=== PATIENT | female | born 1955 | race Caucasian/White ===

== ENCOUNTER 2022-12-18 05:30 | Outpatient (CLI) | payer MEDICARE, OTHER ==
[~2022-12-18] VITALS: Ht 157.5 cm; Wt 51.7 kg
== END 2022-12-19 13:06 | disposition home or self-care (01) ==
LOC: PREOP 05:30
PROVIDERS: ATTEND Podiatrist Foot & Ankle Surgery
DX: Z01.818 Encounter for other preprocedural examination (principal)

== ENCOUNTER 2022-12-25 06:02 | Day surgery (SDC) | payer MEDICARE, OTHER ==
[2022-12-25] VITALS (11 sets, daily range): BP systolic 145–188; BP diastolic 71–95
[~2022-12-25] VITALS: Ht 157.5 cm; Wt 51.7 kg
[2022-12-25] MEDS ORDERED: ceFAZolin INJECTION 1,000 MG in NS (IVPB) 50 ML IV ONE (06:15)
[2022-12-25] MEDS: LACTATED RINGERS 1,000 ML IV PRN ×2 (06:33→09:15)
[2022-12-25] MEDS ORDERED: BUPIVACAINE 0.5% 30 ML (SENSORCAINE) VIAL ONE (06:55)
[2022-12-25] MEDS ORDERED: LIDOCAINE 1% INJ 20 ML VIAL ONE (06:55)
[2022-12-25] MEDS ORDERED: LIDOCAINE PF 2% 5 ML (XYLOCAINE) VIAL ONE (07:01)
[2022-12-25] MEDS ORDERED: proPOfol 200 MG/20 ML (DIPRIVAN) VIAL IV ONE (07:01)
[2022-12-25] MEDS ORDERED: fentaNYL INJ 100 MCG/2 ML AMP ONE (07:01)
[2022-12-25] MEDS ORDERED: MIDAZOLAM 2 MG/2 ML (VERSED) VIAL ONE (07:01)
[2022-12-25] MEDS ORDERED: ONDANSETRON 4 MG/2 ML (SDV) Z0FRAN ONE (07:01)
--- NOTE | 2022-12-25 07:39 | Progress Note-Pre Operative ---
Pre-Operative Progress Note Date of Available H&P: Dec 25, 2022 Date H&P Reviewed: Dec 25, 2022 Time H&P Reviewed: 07:39 Pre-Operative Diagnosis: Hallux Valgus, 2n Huberertoe, right BEATRIZ RAMACHANDRAN DPM Dec 25, 2022 07:39
[2022-12-25] MEDS ORDERED: SEVOFLURANE (ULTANE) 15 ML INHAL SOLN ONE (10:18)
--- NOTE | 2022-12-25 10:27 | Progress Note-Post Operative ---
Post-Operative Progess Note Surgeon (s)/Training And Development Director (s) Surgeon BEATRIZ RAMACHANDRAN DPM Training And Development Director: none Pre-Operative Diagnosis Hallux Valgus, 2n Hammertoe, right Post-Operative Diagnosis Same Procedure & Operative Findings Date of Procedure 12/25/22 Procedure Performed/Findings Lapidus-Rudy Bunionectomy, 2nd metatarsal osteotomy, reduction of 2nd hammertoe, right foot. Anesthesia Type General Estimated Blood Loss Estimated blood loss (mL): Minimal Specimens/Packing Specimens Removed none BEATRIZ RAMACHANDRAN DPM Dec 25, 2022 10:27
[2022-12-25] MEDS ORDERED: CEPH500C PO (10:30)
[2022-12-25] MEDS ORDERED: HYDROcodone/APAP 5 MG/325 MG (LORTAB) TAB PO PRN (10:30)
[2022-12-25] MEDS ORDERED: ACHD5005 PO (10:30)
[2022-12-25] MEDS ORDERED: LACTATED RINGERS 1,000 ML IV SCH (10:30)
[2022-12-25] MEDS ORDERED: ONDANSETRON 4 MG/2 ML (SDV) Z0FRAN IVP PRN (10:45)
[2022-12-25] MEDS ORDERED: morphine INJ 10 MG/ML 1ML (SYR OR VIAL) IVP ONE (10:45)
--- NOTE | 2022-12-25 10:56 | Diagnostic Imaging Report ---
INDICATION: Right foot pain. FINDINGS: There are postop changes from pinning of the 2nd digit. The patient has osteotomy of the base of the 1st metatarsal with fusion of the 1st tarsometatarsal joint. There are tendon anchors at the 2nd metatarsal and base of the proximal phalanx of the big toe. IMPRESSION: Post surgical changes of the right foot. The bones and hardware appear to be in good position. Dictated by: Dictated on workstation # [id number]
--- NOTE | 2022-12-25 13:42 | Physical Therapy Ortho Eval ---
PT Orthopedic Evaluation Type of Surgery Prior Level of Function Locomotion (Upon Admit): Independent Established Durable Medical Eq: Crutches Subjective Subjective Patient lying supine in bed upon PT arrival, agreeable to treatment. Reports no pain at the moment, but states "Its just a bad ache." Steps Into Home: 0 Motor Control Motor Control: Motor Control WNL ROM ROM: WFL, except focal deficit Strength Strength: Gen Weak,No Focal Deficit Transfer SCALE: Activities may be completed with or without assistive devices. 0-Kxruolwzyj-uixrdmw completes the activity by him/herself with no assistance from a helper. 5-Set-up or Clean-up Assistance-helper sets up or cleans up; patient completes activity. [place] assists only prior to or following the activity. 4-Supervision or Touching Assistance-helper provides verbal cues and/or touching/steadying and/or contact guard assistance as patient completes activity. Assistance may be provided throughout the activity or intermittently. 3-Partial/Moderate Assistance-helper does LESS THAN HALF the effort. [place] lifts, holds or supports trunk or limbs, but provides less than half the effort. 2-Substantial/Maximal Assistance-helper does MORE THAN HALF the effort. [place] lifts or holds trunk or limbs and provides more than half the effort. 9-Pstpxhwgi-ibhuzj does ALL the effort. Patient does none of the effort to complete the activity. Or, the assistance of 2 or more helpers is required for the patient to complete the activity. If activity was not attempted, code reason: 7-Patient Refused. 9-Not Applicable-not attempted and the patient did not perform the activity before the current illness, exacerbation or injury. 10-Not Attempted due to Environmental Limitations-(lack of equipment, weather restraints, etc.). 88-Not Attempted due to Medical Conditions or Safety Concerns. Transfers (B, C, W/C) (QC): 4 Gait Gait Assistive Device: Crutches Right Lower Extremity: Right Weight Bearing Status RLE: Non Weight Bearing Left Lower Extremity: Left Weight Bearing Status LLE: Full Weight Bearing Gait (QC): 3 Distance: 80 Summary/Comments Patient moderately unsteady during gait with crutches. Requires mod A to avoid falling on three occasions. Patient reports she feels dizzy and "just off", most likely to anaesthesia. Nursing notified and advised to keep patient for at least another hour and let her eat lunch. Stairs #of Steps: 0 Treatment Rendered Treatment: Gait Train Assessment/Goals Goal Time Frame: 1 Visit Safe Ambulation: No Patient does not demonstrate safe ambulation at this time, however this is due to just coming back from surgery. Nursing notified. Plan Treatment Plan: Discharge Time Time In: 1145 Time Out: 1157 Total Billed Treatment Time: 12 Billed Treatment Time Visit, RIGOBERTO SHAIKH PT Dec 25, 2022 13:42
--- NOTE | 2022-12-25 14:11 | Anesthesia-General Post-Op ---
General Patient Condition Mental Status/LOC: Same as Preop Cardiovascular: Satisfactory Nausea/Vomiting: Absent Respiratory: Satisfactory Pain: Controlled Complications: Absent Post Op Complications Complications None Follow Up Care/Instructions Patient Instructions None needed. Anesthesia/Patient Condition Patient Condition Patient is doing well, no complaints, stable vital signs, no apparent adverse anesthesia problems. No complications reported per nursing. DAVID SRIVASTAVA CRNA Dec 25, 2022 14:11
--- NOTE | 2022-12-25 16:28 | OPERATIVE REPORT ---
DATE OF SERVICE: 12/25/2022 SURGEON: Mellissa Rivera DPM. PREOPERATIVE DIAGNOSES: 1. Hallux abductovalgus metatarsal primus varus, right foot. 2. Hypertrophic second metatarsal, right foot. 3. Hammer digit syndrome, right second toe. POSTOPERATIVE DIAGNOSES: 1. Hallux abductovalgus metatarsal primus varus, right foot. 2. Hypertrophic second metatarsal, right foot. 3. Hammer digit syndrome, right second toe. PROCEDURES PERFORMED: 1. Modified Lapidus Rudy bunionectomy, right foot. 2. Second metatarsal osteotomy with screw fixation. 3. Reduction of hammertoe, right second digit. WOUND CLASS: Clean. ANESTHESIA: General. HEMOSTASIS: Pneumatic thigh tourniquet at 250 mmHg. INDICATIONS: This 67-year-old female presents complaining of a painful right foot. Conservative therapy is met with unsatisfactory results and the patient is agreeable to surgical intervention after risks and complications were discussed at length. No guarantees were extended to the patient and she is willing to proceed. DESCRIPTION OF PROCEDURE: The patient was brought back to the operating table and placed in secure supine position. Appropriate timeout was performed. General anesthetic was then induced. A pneumatic thigh tourniquet was placed on the right lower extremity over several layers of padding. Right foot was then prepped and draped in normal sterile manner. The right foot was then elevated, allowing to exsanguinate after which the tourniquet was inflated to 250 mmHg. Attention was then directed to the dorsal aspect of the right first metatarsal cuneiform joint where a 4 cm longitudinal linear incision was created. The incision was deepened in same plane with great care to identify and retract all vital neurovascular structures. Only necessary blood vessels were cauterized as encountered. The incision was deepened down just medial to the extensor hallucis longus down to capsule tissue. A longitudinal capsulotomy was performed and the capsular tissue reflected medially and laterally. Next, utilizing the [place] 28 Lapidus system, a cut guide of 16 degrees was utilized utilizing standard technique. The base of the first metatarsal as well as the distal articular cartilage of the medial cuneiform were resected. Once these wedge bones were removed, good reduction of the metatarsal primus varus was noted. There was also rotation provided with the first metatarsal to bring sesamoids down underneath the head of the first metatarsal. This was confirmed by intraoperative C-arm. Temporary K-wire fixation was driven from plantar aspect of the first metatarsal base up into the medial cuneiform. Next, utilizing a 4-hole standard compression plate for Lapidus, it was applied to the first metatarsal cuneiform joint. The 2 proximal holes of the plate were filled with 3.5 locking screws of 14 and 12 mm of length. Next, the compression screw was driven from dorsal distal to plantar proximal across the arthrodesis site, which was a 4.0 headed screw of 32 mm of length. Excellent compression and fixation was appreciated this time. The distal 3 holes of the Lapidus plate were filled with 3.5, 12 and 18 mm length locking screws and nonlocking screw of 14 mm was also applied. Excellent bony apposition and compression was appreciated at this time. The temporary K-wire fixation was withdrawn from the foot. Attention was then directed to the dorsal aspect of the right first metatarsophalangeal joint where a 4 cm longitudinal linear incision was created. The incision was deepened in the same plane with great care to identify and retract all vital neurovascular structures. It was deepened down to the capsule where a longitudinal capsulotomy was performed. The medial eminence to the first metatarsal was resected utilizing a power sagittal saw. Next, a lateral release was performed to the first metatarsophalangeal joint where the lateral capsulorrhaphy was performed as well as release of the conjoined tendon of the adductor hallucis. This reduced the hallux valgus deformity, but not as much as we wanted. It was then decided that an Rudy type procedure, which should be performed. Subperiosteal dissection was carried out to the diaphysis of the proximal phalanx of the hallux. Utilizing a sagittal saw, a wedge of bone was resected with the base, medial and the lateral cortices held intact. Two transport pilot holes were created at the dorsal medial aspect of the osteotomy after which a 28-gauge monofilament wire was passed through these transport pilot holes securing the osteotomy in a closed position. Excellent bony apposition and fixation was appreciated at this time. The wounds were flushed with copious amounts of normal saline. Closure was performed in layers. Deep closure was performed to the two incisions with 3-0 Vicryl, superficial with 4-0 Vicryl and skin closed with 4-0 Prolene in a horizontal mattress type stitch. Attention was then directed to the dorsal aspect of the right second ray where an incision was created from the surgical neck area of the second metatarsal down to the distal interphalangeal joint of the digit. The incision was deepened in the same plane with great care to identify and retract all vital neurovascular structures. Only necessary blood vessels were cauterized as encountered. The incision was deepened down to the extensor tendon overlying the proximal phalanx. A Z-slide lengthening was performed overlying the proximal phalanx and the extensor tendon extended proximally where the extensor tolbert was released. Dorsal capsulorrhaphy was performed to the second metatarsophalangeal joint. The medial collateral ligament was also released. Next, utilizing a power sagittal saw, a Jese type osteotomy was performed. This started at the superior aspect of the articular cartilage of the second metatarsal head and extended proximally parallel to what would be the weightbearing surface for the right foot. This allowed its capital fragment to translocate proximally and medially and was fixated in its corrected position utilizing a 2.0 snap-off screw of 12 mm of length. Good bony apposition and fixation was appreciated. The wound was flushed with copious amounts of normal saline. The dorsal aspect of the second metatarsal head was further contoured and smoothed with a rongeur. Attention was then directed to the right second toe where arthrodesis was performed to the proximal interphalangeal joint. A power sagittal saw was utilized to modify the head of the proximal phalanx, further contoured and smoothed with a power bur. Power bur was also utilized to create a hole in the base of the middle phalanx where the peg-in-hole type arthrodesis. A 0.054 K-wire was utilized to fixate the digit in its corrected position. Excellent bony apposition and fixation was appreciated. The excess K-wire out the end of the toe was cut and a protective ball placed over the end of the wire. The wound was flushed with copious amounts of normal saline. Closure was performed in layers. Deep closure was performed with 3-0 Vicryl, superficial with 4-0 Vicryl, skin closed with 4-0 Prolene in a horizontal mattress type stitch. Postoperative injection consisted of 17 mL of 0.5% Marcaine injected in local infusion to the surgical sites. A 10 mg of dexamethasone was also utilized injected into the first intermetatarsal space lateral to the right first metatarsophalangeal joint. Postoperative dressing consisted of Betadine-soaked Adaptic, sterile 4 x 4's, sterile Kerlix, all secured with a Coban wrap. The patient tolerated the anesthesia and procedure well and was transported from the operating room to the recovery area with vital signs stable and vascular status intact to all digits of the right foot. She is given a prescription for Keflex as well as Vicodin. She is to be nonweightbearing on the right lower extremity and will see her back in the office approximately 11 days' period of time or sooner if necessary. Job ID: [id number] DocumentID: [id number] Dictated Date: 12/25/2022 10:47:38 Industrial Ro[employer] Date: 12/25/2022 16:26:00 Dictated By: URIEL BRADSHAW
== END 2022-12-25 12:50 | disposition home or self-care (01) ==
LOC: SDC 06:02
PROVIDERS: ATTEND Podiatrist Foot & Ankle Surgery
DX: M20.31 Hallux varus (acquired), right foot (principal); M89.371 Hypertrophy of bone, right ankle and foot; M20.41 Other hammer toe(s) (acquired), right foot; M20.11 Hallux valgus (acquired), right foot; I10 Essential (primary) hypertension; M21.611 Bunion of right foot; E78.5 Hyperlipidemia, unspecified
CPT/HCPCS: 28285; 28299; 28308; 73620; 87081; 97162; C1713 ×10